=== PATIENT | male | born 1980 | race Hispanic/Latino ===

== ENCOUNTER 2016-09-07 14:08 | Emergency (ER) | payer OTHER ==
[~2016-09-07] VITALS: Ht 162.6 cm; Wt 71.8 kg
[~2016-09-07 14:08] MED LIST: NAPROSYN500 MG PO
[2016-09-07] MEDS ORDERED: MOTRIN800 MG PO (14:35)
[2016-09-07 15:20] VITALS: BP 131/74
== END 2016-09-07 15:20 | disposition home or self-care (01) | DRG 605 ==
LOC: ED 14:08
DX: S50.11XA Contusion of right forearm, initial encounter (principal); W22.8XXA Striking against or struck by other objects, initial encounter; Y92.89 Other specified places as the place of occurrence of the external cause